=== PATIENT | male | born 1985 | race Caucasian/White ===

== ENCOUNTER → 2020-01-15 | Outpatient (CLI) ==
[~2020-01-15] MED LIST: ESCI10TA2 PO
== END ==
LOC: M LABSMTC 09:12 → EDUNIT# 09:20
PROVIDERS: ATTEND Anesthesiology
DX: Z01.812 Encounter for preprocedural laboratory examination (principal); Z20.828 Contact with and (suspected) exposure to other viral communicable diseases

== ENCOUNTER 2020-01-20 10:20 | Day surgery (SDC) | payer BC, OTHER ==
[~2020-01-20] VITALS: Ht 195.6 cm; Wt 137.3 kg
[~2020-01-20 10:20] MED LIST changes: +NS 1,000 ML IV ONE
[2020-01-20] MEDS ORDERED: ALBUTEROL SULFATE 2.5 MG/0.5 ML INH NEB SOLN INH ONE (11:00)
[2020-01-20] MEDS ORDERED: LIDOCAINE 2% 100MG/5ML SDV (FOR ANES.) As Ordered ONE (12:11)
[2020-01-20] MEDS ORDERED: propofoL 200 MG/20 ML VIAL As Ordered ONE ×2 (12:11→12:20)
--- NOTE | 2020-01-20 12:43 | ROOR ---
Patient Name: Johnny Sánchez Procedure Date: 01/20/2020 12:02 PM Date of : 1985 Age: 34 Room: [facility] Gender: Male Note Status: Finalized Procedure: Colonoscopy Indications: Hematochezia Providers: Quinten Ramirez MD Referring MD: Erasto Dorado Md Requesting Provider: Medicines: Monitored Anesthesia Care Complications: No immediate complications. Procedure: Pre-Anesthesia Assessment: - Prior to the procedure, a History and Physical was performed, and patient medications and allergies were reviewed. The patient is competent. The risks and benefits of the procedure and the sedation options and risks were discussed with the patient. All questions were answered and informed consent was obtained. Patient identification and proposed procedure were verified by the physician, the nurse and the anesthesiologist in the procedure room. Mental Status Examination: alert and oriented. Airway Examination: normal oropharyngeal airway and neck mobility. Respiratory Examination: clear to auscultation. CV Examination: normal. Prophylactic Antibiotics: The patient does not require prophylactic antibiotics. Prior Anticoagulants: The patient has taken no previous anticoagulant or antiplatelet agents. ASA Grade Assessment: II - A patient with mild systemic disease. After reviewing the risks and benefits, the patient was deemed in satisfactory condition to undergo the procedure. The anesthesia plan was to use monitored anesthesia care (MAC). Immediately prior to administration of medications, the patient was re-assessed for adequacy to receive sedatives. The heart rate, respiratory rate, oxygen saturations, blood pressure, adequacy of pulmonary ventilation, and response to care were monitored throughout the procedure. The physical status of the patient was re-assessed after the procedure. The Colonoscope was introduced through the anus and advanced to the terminal ileum, with identification of the appendiceal orifice and IC valve. The colonoscopy was performed without difficulty. The patient tolerated the procedure well. The quality of the bowel preparation was good. The terminal ileum, ileocecal valve, appendiceal orifice, and rectum were photographed. Scope insertion time was 3 minutes. Scope withdrawal time was 9 minutes. The total duration of the procedure was 12 minutes. Findings: The perianal and digital rectal examinations were normal. The terminal ileum appeared normal. Biopsies were taken with a cold forceps for histology. Verification of patient identification for the specimen was done by the physician and nurse using the patient's name, date and medical record number. Estimated blood loss was minimal. Normal mucosa was found in the entire colon. Biopsies for histology were taken with a cold forceps from the right colon and left colon for evaluation of microscopic colitis. Rectal varices were found. Non-bleeding external and internal hemorrhoids were found during retroflexion. The hemorrhoids were large. Impression: - The examined portion of the ileum was normal. Biopsied. - Normal mucosa in the entire examined colon. Biopsied. - Rectal varices. - Non-bleeding external and internal hemorrhoids. Recommendation: - Patient has a contact number available for emergencies. The signs and symptoms of potential delayed complications were discussed with the patient. Return to normal activities tomorrow. Written discharge instructions were provided to the patient. - High fiber diet. - Continue present medications. - Preparation H suppository: Insert rectally daily for 1 week. - Await pathology results. - Repeat colonoscopy at age 50 for screening purposes. - Telephone GI clinic for pathology results in 2 weeks. - Return to primary care physician. Procedure Code(s): --- Professional --- 90750, Colonoscopy, flexible; with biopsy, single or multiple Diagnosis Code(s): --- Professional --- K64.8, Other hemorrhoids K92.1, Melena (includes Hematochezia) CPT copyright 2019 [employer]. All rights reserved. The codes documented in this report are preliminary and upon grinder machine setter review may be revised to meet current compliance requirements. Quinten Ramirez MD Quinten Ramirez MD 01/20/2020 12:43:07 PM Electronically signed by Quinten Ramirez MD Number of Addenda: 0 Note Initiated On: 01/20/2020 12:02 PM Estimated Blood Loss: Estimated blood loss was minimal.
[2020-01-20 13:09] VITALS: BP 122/78
== END 2020-01-20 13:14 | disposition home or self-care (01) ==
LOC: M OPP 10:20
PROVIDERS: ATTEND Internal Medicine Gastroenterology
DX: K64.8 Other hemorrhoids (principal); K92.1 Melena; Z79.899 Other long term (current) drug therapy

== ENCOUNTER → 2022-01-15 | Outpatient (REF) ==
[~2022-01-15] MED LIST changes: +ESCI10TA16 PO; -ESCI10TA2 PO; -NS 1,000 ML IV ONE
== END ==
LOC: M SLEEP HO 10:00
PROVIDERS: ATTEND Student in an Organized Health Care Education/Training Program
DX: G47.33 Obstructive sleep apnea (adult) (pediatric) (principal)

== ENCOUNTER → 2024-09-08 | Outpatient (REF) | LOC: M SLEEP HO 11:00 | PROVIDERS: ATTEND Student in an Organized Health Care Education/Training Program | DX: G47.33 Obstructive sleep apnea (adult) (pediatric) (principal) ==